=== PATIENT | male | born 1950 | race Caucasian/White ===

== ENCOUNTER 2021-06-08 10:05 | Inpatient (IN) | payer MEDICARE ==
[~2021-06-08] VITALS: Ht 188 cm; Wt 74.4 kg
[~2021-06-08 10:05] MED LIST: ARNUITY ELLIPT50 MCG INH; CARVEDILOL12.5 MG PO; CRESTOR20 MG PO; FLOMAX 0.4 MG0.4 MG PO; FUROSEMIDE20 MG PO; HEARTBURN RELI150 M1 PO; IBUPROFEN800 MG PO; MYLANTA MAXIMU355 ML PO; NORCO 5-325 TA1 EACH PO; PLAVIX75 MG PO; SOTALOL80 MG PO; ZOLOFT50 MG PO
[2021-06-08 10:56] LABS: HEMOGLOBIN 12.7 gm/dl (14.0-17.5); RED BLOOD COUNT 3.84 M/UL (4.20-5.50); WHITE BLOOD COUNT 5.3 K/UL (4.5-11.0)
[2021-06-08 11:21] LABS: BUN/CREATININE RATIO 12 (0-10)
[2021-06-09 05:53] LABS: HEMOGLOBIN 11.9 gm/dl (14.0-17.5); RED BLOOD COUNT 3.72 M/UL (4.20-5.50); WHITE BLOOD COUNT 5.2 K/UL (4.5-11.0)
--- NOTE | 2021-06-11 02:22 | NUR ---
0200-Patients family requested for telemetry alarms to be turned off (ex. PVC's, etc), no red alarms at present time. Informed patient and family that alarms could not be turned off incase of an emergency. Educated and verbalized understaning.
[2021-06-11 05:43] LABS: HEMOGLOBIN 11.7 gm/dl (14.0-17.5); RED BLOOD COUNT 3.65 M/UL (4.20-5.50); WHITE BLOOD COUNT 4.3 K/UL (4.5-11.0)
[2021-06-11 06:10] LABS: BUN/CREATININE RATIO 10 (0-10)
[2021-06-11] MEDS ORDERED: MEXILETINE HCL150 MG PO (08:04)
[2021-06-11] MEDS ORDERED: XARELTO 10 MG T10 MG PO (08:04)
[2021-06-11] MEDS ORDERED: ASPIRIN EC81 MG PO (08:04)
[2021-06-11] MEDS ORDERED: amiodarone (08:07)
== END 2021-06-11 10:45 | disposition home or self-care (01) | DRG 309 ==
LOC: ER1 10:05 → CDU 10:42 → CCU 10:42 → PROG CARE 06-11 01:20
PROVIDERS: Emergency Medicine; Internal Medicine; Physician Assistant; ADMIT Internal Medicine
DX: I47.2 Ventricular tachycardia (principal); I50.22 Chronic systolic (congestive) heart failure; Z20.822 Contact with and (suspected) exposure to COVID-19; E11.9 Type 2 diabetes mellitus without complications; I25.10 Atherosclerotic heart disease of native coronary artery without angina pectoris; I48.0 Paroxysmal atrial fibrillation; E03.9 Hypothyroidism, unspecified; E66.01 Morbid (severe) obesity due to excess calories; I25.5 Ischemic cardiomyopathy; I95.89 Other hypotension; Z79.01 Long term (current) use of anticoagulants; Z79.82 Long term (current) use of aspirin; Z95.1 Presence of aortocoronary bypass graft; Z95.0 Presence of cardiac pacemaker; Z95.810 Presence of automatic (implantable) cardiac defibrillator; Z85.118 Personal history of other malignant neoplasm of bronchus and lung; Z82.49 Family history of ischemic heart disease and other diseases of the circulatory system; Z83.3 Family history of diabetes mellitus; Z80.9 Family history of malignant neoplasm, unspecified; Z87.891 Personal history of nicotine dependence; Z79.4 Long term (current) use of insulin
CPT/HCPCS: 36415; 71045; 80048; 80053; 81001; 82550; 82553; 82962; 83605; 83735; 83874; 83880; 84439; 84443; 84484; 85025; 85027; 85610; 85730; 93005; 99285; J2001; J2250; J2405; J3010; J3480; U0002

== ENCOUNTER → 2021-07-04 | Outpatient (CLI) | payer MEDICARE ==
[~2021-07-04] MED LIST changes: +ASPIRIN EC81 MG PO; +MEXILETINE HCL150 MG PO; +XARELTO 10 MG T10 MG PO; +amiodarone
== END ==
LOC: ECHO 12:37
DX: I50.84 End stage heart failure (principal); I08.3 Combined rheumatic disorders of mitral, aortic and tricuspid valves; Z95.0 Presence of cardiac pacemaker
CPT/HCPCS: ECHO; 93306